=== PATIENT | male | born 1995 | race Caucasian/White ===

== ENCOUNTER 2017-07-29 15:26 | Emergency (ER) | payer SELFPAY ==
[~2017-07-29] VITALS: Ht 175.3 cm; Wt 75.0 kg
[2017-07-29 15:30] VITALS: BP 156/99
== END 2017-07-29 17:14 | disposition left against medical advice (07) ==
LOC: EMS 15:30
DX: R51 Headache (principal); Z53.21 Procedure and treatment not carried out due to patient leaving prior to being seen by health care provider